=== PATIENT | female | born 1940 | race Asian ===

== ENCOUNTER 2022-09-22 17:22 | Inpatient (IN) | payer OTHER ==
[~2022-09-22] VITALS: Ht 152.4 cm; Wt 43.5 kg
[2022-09-22 17:34] VITALS: BP 132/76
[2022-09-22] MEDS ORDERED: NACL 0.9% 1,000 ML IV ONE (18:20)
--- NOTE | 2022-09-22 18:30 | NUR ---
ASSESMENT PER FLOWSHEET. COMFORT MEASURES AND SUPPORTIVE CARE INITIATED. IV ESTABLISHED,. LAB DRAWN. PUR WICK PLACED. MONITOR PLACED. PREP FOR ERMD EVAL. DAUGHTER AT BS. STATES MOTHER SPEAKS ONLY MANDARIN.
[2022-09-22 18:36] LABS: BASOPHILS % (AUTO) 0.4 % (0.0-2.0); EOSINOPHILS # (AUTO) 0.1 K/uL (0-0.4); EOSINOPHILS % (AUTO) 0.5 % (0.0-4.0); HEMATOCRIT 35.9 % (36-48); HEMOGLOBIN 12.1 g/dL (12.0-16.0); LYMPHOCYTES # (AUTO) 1.7 K/uL (2.5-16.5); LYMPHOCYTES % (AUTO) 15.6 % (20.5-51.1); MEAN CORPUSCULAR HEMOGLOBIN 30 pg (27-31); MEAN CORPUSCULAR HGB CONC 34 g/dL (33-37); MEAN CORPUSCULAR VOLUME 89.2 fL (80-94); MONOCYTES # (AUTO) 1.1 K/uL (0.8-1.0); MONOCYTES % (AUTO) 9.5 % (1.7-9.3); NEUTROPHILS # (AUTO) 8.3 K/uL (1.8-7.7); PLATELET COUNT (AUTO) 163 K/uL (140-450); RED BLOOD CELL COUNT(AUTO) 4.03 MIL/uL (4.20-5.40); RED CELL DISTRIBUTION WIDTH 12.9 % (11.6-13.7); WHITE BLOOD COUNT (AUTO) 11.2 K/uL (4.8-10.8)
--- NOTE | 2022-09-22 19:34 | NUR ---
PT RETURNED FROM CT. PT REMAINS STABLE. CONTINUED CARE ENDORSED TO EMILY RONDON.
[2022-09-22 19:39] LABS: ALBUMIN 3.6 g/dL (3.4-5.0); ANION GAP 10.7 (8-16); ASPARTATE AMINOTRANSFERASE 28 U/L (15-37); CHLORIDE 101 mmol/L (98-107); CREATININE 1.4 mg/dL (0.6-1.3); FREE T4 (FREE THYROXINE) 1.57 ng/dL (0.76-1.46); GLUCOSE 119 mg/dL (74-106); SODIUM SERUM 141 mmol/L (136-145); THYROID STIMULATING HORMONE 0.45 uIU/mL (0.34-3.74); TOTAL BILIRUBIN 0.9 mg/dL (0.0-1.0); UREA NITROGEN, BLOOD 45 mg/dL (7-18)
[2022-09-22 19:43] LABS: POTASSIUM 2.7 mmol/L (3.5-5.1)
[2022-09-22 19:46] LABS: ACETAMINOPHEN < 0.5 ug/ml (10-30); SALICYLATE < 2.8 mg/dL (2.8-20.0)
[2022-09-22] MEDS ORDERED: POTASSIUM CHLORIDE 20% 40 MEQ/15 ML UDC PO ONE (20:05)
--- NOTE | 2022-09-22 21:15 | NUR ---
PT RESTING IN BED DAUGHTER AT BEDSIDE. DENIES ANY PAIN. PENDING DISPO. PT IS NON BELARUSIAN SPEAKING. 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 PUREWIX IN PLACE. BED AT LOWEST POSITION SIDE RAILS UP X2
[2022-09-22] MEDS: NACL 0.9% 1,000 ML IV SCH (23:25)
--- NOTE | 2022-09-23 00:14 | NUR ---
COVID SWAB AND URINE COLLECTED AND SENT TO LAB
[2022-09-23 00:24] LABS: BILIRUBIN,URINE NEGATIVE (NEGATIVE); BLOOD, URINE 3+ (NEGATIVE); COLOR,URINE YELLOW (YELLOW); LEUKOCYTE ESTERASE ,URINE NEGATIVE (NEGATIVE); NITRITE, URINE NEGATIVE (NEGATIVE); UGLUCOSE NEGATIVE (NEGATIVE)
[2022-09-23 00:35] LABS: APPEARANCE,URINE SLIGHTLY HAZY (CLEAR)
[2022-09-23 00:36] LABS: RBC,URINE >100 /HPF (0-5); WBC,URINE 0-5 /HPF (0-5)
[2022-09-23] MEDS ORDERED: HYDR12.51 PO (00:47)
[2022-09-23] MEDS ORDERED: CALC200V3 NS (00:47)
[2022-09-23] MEDS ORDERED: LOVA10TA2 PO (00:47)
[2022-09-23] MEDS ORDERED: CALC-575 PO (00:48)
[2022-09-23] MEDS ORDERED: ASCO-786 PO (00:48)
[2022-09-23] MEDS ORDERED: VIT1TAB10 PO (00:50)
--- NOTE | 2022-09-23 01:04 | NUR ---
MED RECONCILE AND BELONGINGS LIST COMPLETED
--- NOTE | 2022-09-23 01:42 | NUR ---
PENDING BED ASSIG TO BE GIVEN FOR TELE. PT IS SLEEPING RESP EVEN AND UNLABORED. HOB ELEVATED. ON BEDSIDE INSPECTOR GOVERNMENT PROPERTY. BED AT LOWEST LEVEL SIDE RAILS UP X2
--- NOTE | 2022-09-23 06:28 | NUR ---
PT RESTING IN BED WITH HOB ELEVATED. 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 RESP EVEN AND UNLABORED. PENDING BED ASSIG
--- NOTE | 2022-09-23 07:38 | NUR ---
PT SLEEPING, NO AC DISTRESS, EASILY AROUSABLE TO TOUCH, SKIN W/D, SB ON CM, HR 45, NS RUNNING WELL RW, O2 SAT 98% RA, NO FACIAL GRIMACING OR GRUNTING, SR UP TIMES 2. WILL BE ADMITTED
[2022-09-23 08:00] VITALS: BP 151/59
--- NOTE | 2022-09-23 08:03 | NUR ---
PT TO TELEBED 121a, REPORT TO ARNULFO, NO EVENTS AT TRANSFER TIME
[2022-09-23] MEDS: NACL 0.9% 1,000 ML IV SCH ×2 (08:05→18:25)
[2022-09-23 12:00] VITALS: BP 129/65
[2022-09-23] MEDS ORDERED: METO50TE2 PO (12:07)
[2022-09-23] MEDS ORDERED: CHOL50005 PO (12:10)
[2022-09-23] MEDS ORDERED: OSC500 PO (12:12)
[2022-09-23] MEDS ORDERED: ASCO500T95 PO (12:17)
[2022-09-23] MEDS ORDERED: TERI250S2 SUBQ (12:19)
--- NOTE | 2022-09-23 14:18 | NUR ---
DAUGHTER OF PATIENT ASKING IF PATIENT WILL BE DISCHARGING FROM HOSPITAL SOON. ALSO SAYS PATIENT REQUEST FOR MEDICATION TO ASSIST WITH CONSTIPATION.
[2022-09-23 16:00] VITALS: BP 134/66
[2022-09-23 20:00] VITALS: BP 186/93
--- NOTE | 2022-09-23 20:00 | NUR ---
NURSE REPORT REPORT OBTAINED FROM [facility] NURSE ARREDONDO AT 1915 AND THIS NURSE ASSUMED CARE OF PATIENT. ALL QUESTIONS ANSWERED. ARIS PINA RN
[2022-09-23] MEDS ORDERED: CALCITONIN (SALMON) 200 IU/ACTUATION SPR 3.7ML BTL NS SCH (20:35)
[2022-09-23] MEDS ORDERED: CALCIUM CARB 600 MG TAB PO SCH (21:00)
--- NOTE | 2022-09-23 21:00 | NUR ---
NURSE NOTES K IS LOW AT 2.[address] GARCIA WAS SENT MESSAGE OF THIS AND THAT PATIENT HAS A LOT OF HOME MEDS. SHE STATED TO ORDER ALL HOME MEDS. Addendum: 09/23/22 at 2221 by Agency 03 RN RN PATIENT HAD A ELEVATED BP 186/93, SINCE SHE IS C/O BEING CONSTIPATED. RECHECKED BP AND DOWN TO 144/75 WHEN BACK INTO BED. GIVEN MEDS ORDERED AND HYDRALAZINE 12.5 MG GIVEN PO AND IV POTASSIUM STARTED AT 50 ML/HR. BUT HURTING SO NS INFUSING AT 100 ML/HR AND KCL AT 25 ML/HR. DIAPER CHANGED AND PATIENT DIDN'T WANT TO USE PURE WICK
[2022-09-23] MEDS: ASCORBIC ACID 500 MG TAB PO SCH (21:19)
[2022-09-23] MEDS: CALCIUM CARBONATE 500 MG TAB PO SCH (21:19)
[2022-09-23] MEDS: hydroCHLOROthiazide 25 MG TAB PO SCH (21:20)
[2022-09-23] MEDS: KCL 20 MEQ IN 100 mL PREMIX 100 ML IV SCH ×2 (21:21)
[2022-09-23] MEDS ORDERED: LORazepam 2 MG/ML VIAL IVP PRN (22:10)
[2022-09-23] MEDS ORDERED: DOCUSATE SODIUM 100 MG GELCAP PO PRN (22:10)
[2022-09-23] MEDS ORDERED: ONDANSETRON 4 MG/2 ML VIAL IVP PRN (22:10)
[2022-09-23] MEDS ORDERED: MORPHINE SULFATE 2 MG/ML SYR IVP PRN (22:10)
[2022-09-23] MEDS ORDERED: POTASSIUM CHLORIDE 10 MEQ TABER PO PRN (22:10)
[2022-09-23] MEDS ORDERED: ZOLPIDEM 10 MG TAB PO PRN (22:10)
[2022-09-23] MEDS ORDERED: ACETAMINOPHEN 325 MG TAB PO PRN (22:10)
[2022-09-24] VITALS: BP 167/68
--- NOTE | 2022-09-24 00:02 | NUR ---
NURSE NOTES VSS. AFEB. NO C/O PAIN OR DISCOMFORT. TELE WITH SB 57
[2022-09-24 04:00] VITALS: BP 174/103
[2022-09-24] MEDS ORDERED: POLYETHYLENE GLYCOL 17 GM/PKT PO PRN (04:20)
[2022-09-24] MEDS: NACL 0.9% 1,000 ML IV SCH ×3 (04:25→22:00)
[2022-09-24] MEDS: hydrALAZINE 20 MG/ML VIAL IVP PRN ×2 (04:26→12:41)
--- NOTE | 2022-09-24 04:30 | NUR ---
MD COMMUNICATION DR GARCIA WAS NOTIFIED OF BP ELEVATED 174/103, ORDERED IVP HYDRALAZINE.
[2022-09-24 05:51] LABS: BASOPHILS % (AUTO) 0.2 % (0.0-2.0); EOSINOPHILS # (AUTO) 0.2 K/uL (0-0.4); HEMATOCRIT 32.3 % (36-48); HEMOGLOBIN 11.1 g/dL (12.0-16.0); LYMPHOCYTES # (AUTO) 1.9 K/uL (2.5-16.5); LYMPHOCYTES % (AUTO) 18.8 % (20.5-51.1); MEAN CORPUSCULAR HEMOGLOBIN 31 pg (27-31); MEAN CORPUSCULAR HGB CONC 34 g/dL (33-37); MEAN CORPUSCULAR VOLUME 89.2 fL (80-94); MONOCYTES # (AUTO) 0.8 K/uL (0.8-1.0); MONOCYTES % (AUTO) 7.8 % (1.7-9.3); NEUTROPHILS # (AUTO) 7.1 K/uL (1.8-7.7); NEUTROPHILS % (AUTO) 71.2 % (42.2-75.2); PLATELET COUNT (AUTO) 137 K/uL (140-450); RED BLOOD CELL COUNT(AUTO) 3.62 MIL/uL (4.20-5.40); RED CELL DISTRIBUTION WIDTH 12.8 % (11.6-13.7)
[2022-09-24 06:07] LABS: ANION GAP 8.8 (8-16); CARBON DIOXIDE 29.4 mmol/L (21-32); CHLORIDE 109 mmol/L (98-107); CREATININE 0.9 mg/dL (0.6-1.3); GLUCOSE 131 mg/dL (74-106); POTASSIUM 3.2 mmol/L (3.5-5.1); SODIUM SERUM 144 mmol/L (136-145); UREA NITROGEN, BLOOD 28 mg/dL (7-18)
--- NOTE | 2022-09-24 07:19 | NUR ---
NURSE REPORT REPORT GIVEN TO [facility] NURSE ARNULFO TO ASSUME CARE OF PATIENT. ALL QUESTIONS ANSWERED. ARIS PINA RN
[2022-09-24 07:42] VITALS: BP 143/71
[2022-09-24] MEDS ORDERED: TERIPARATIDE 20 MCG SQ SCH (09:00)
[2022-09-24] MEDS ORDERED: VITAMIN D 400 IU TAB PO SCH (09:00)
[2022-09-24] MEDS ORDERED: VITAMIN B COMPLEX PO SCH (09:00)
[2022-09-24] MEDS ORDERED: LOVASTATIN 10 MG PO SCH (09:00)
--- NOTE | 2022-09-24 09:07 | NUR ---
PATIENT HAS BEEN SCREENED AND CATEGORIZED HIGH NUTRITION RISK. PATIENT WILL BE SEEN WITHIN 1-2 DAYS OF ADMISSION. 09/22/22-09/24/[address] REFERRAL RECEIVED FOR LOW POTASSIUM
[2022-09-24] MEDS: MAG SULF 2000 MG/WATER PREMIX 50 ML IV PRN (09:23)
[2022-09-24] MEDS: METOPROLOL SUCCINATE 50 MG TABER PO SCH (09:23)
[2022-09-24] MEDS: hydroCHLOROthiazide 25 MG TAB PO SCH (09:24)
[2022-09-24] MEDS: ASCORBIC ACID 500 MG TAB PO SCH ×2 (09:24→21:25)
[2022-09-24] MEDS: CALCIUM CARBONATE 500 MG TAB PO SCH ×2 (09:24→21:25)
[2022-09-24] MEDS: VITAMIN B COMPLEX W/C 1 TAB PO SCH (09:29)
[2022-09-24] MEDS: ATORVASTATIN 20 MG TAB PO SCH (09:36)
[2022-09-24 12:00] VITALS: BP 185/88
[2022-09-24 16:00] VITALS: BP 134/54
--- NOTE | 2022-09-24 19:32 | NUR ---
NO REPORT YET FROM AM SHIFT
--- NOTE | 2022-09-24 19:35 | NUR ---
09/24/22 RD INITIAL ASSESSMENT COMPLETED. PLEASE REFER TO NUTRITION ASSESSMENT UNDER CARE ACTIVITY FOR ESTIMATED NUTRITIONAL NEEDS. 1. CONTINUE CARDIAC DIET TOLERATED 2. PROVIDED HANDOUT ON POTASSIUM-CONTAINING FOODS AT PTS BEDSIDE. 3. MONITOR PO INTAKE 4. RD TO FOLLOW-UP 2-3 DAYS, HIGH RISK WENDY SHI RD
[2022-09-24 20:00] VITALS: BP 153/81
--- NOTE | 2022-09-24 22:00 | NUR ---
PT PT TO USE THE BEDSIDE COMMODE , VOIDED FREELY A . AMOUNT 600CC CLEAR U.O , WILL CONT . TO MONITOR
[2022-09-25] VITALS: BP 144/80
--- NOTE | 2022-09-25 | NUR ---
ROUNDS NO S/SX OF ACUTE DISTRESS NOTED WILL CONT. TO MONITOR , CQALL LIGHT WITHIN REACH
--- NOTE | 2022-09-25 04:00 | NUR ---
ROUNDS , NO S/SX OF ACUTE DISTRESS NOTED AT THIS TIME , CALL LIGHT WITHIN REACH .
[2022-09-25 06:00] VITALS: BP 135/70
--- NOTE | 2022-09-25 06:00 | NUR ---
SLEEPING , ON TELE MONITOR . CALL LIGHT WITHIN REACH .
[2022-09-25 06:12] LABS: BASOPHILS % (AUTO) 0.4 % (0.0-2.0); EOSINOPHILS # (AUTO) 0.3 K/uL (0-0.4); EOSINOPHILS % (AUTO) 2.8 % (0.0-4.0); HEMATOCRIT 30.5 % (36-48); HEMOGLOBIN 10.3 g/dL (12.0-16.0); LYMPHOCYTES # (AUTO) 2.5 K/uL (2.5-16.5); LYMPHOCYTES % (AUTO) 27.4 % (20.5-51.1); MEAN CORPUSCULAR HEMOGLOBIN 30 pg (27-31); MEAN CORPUSCULAR HGB CONC 34 g/dL (33-37); MEAN CORPUSCULAR VOLUME 89.8 fL (80-94); MONOCYTES # (AUTO) 0.8 K/uL (0.8-1.0); MONOCYTES % (AUTO) 8.8 % (1.7-9.3); NEUTROPHILS # (AUTO) 5.6 K/uL (1.8-7.7); NEUTROPHILS % (AUTO) 60.6 % (42.2-75.2); PLATELET COUNT (AUTO) 144 K/uL (140-450); RED BLOOD CELL COUNT(AUTO) 3.39 MIL/uL (4.20-5.40); RED CELL DISTRIBUTION WIDTH 13.1 % (11.6-13.7); WHITE BLOOD COUNT (AUTO) 9.2 K/uL (4.8-10.8)
[2022-09-25 06:13] LABS: ANION GAP 9.9 (8-16); CARBON DIOXIDE 26.8 mmol/L (21-32); CHLORIDE 110 mmol/L (98-107); CREATININE 0.9 mg/dL (0.6-1.3); GLUCOSE 108 mg/dL (74-106); POTASSIUM 3.7 mmol/L (3.5-5.1); SODIUM SERUM 143 mmol/L (136-145); UREA NITROGEN, BLOOD 21 mg/dL (7-18)
--- NOTE | 2022-09-25 07:38 | NUR ---
ENDORSED TO AM SHIFT FOR CONT. OF CARE , ENDORSED TO NELA RODGERS TO REMIND THE MD ABOUT RESUSCITATION CODE ORDER . NELA MANCIA VERBALIZED UNDERSTANDING .
[2022-09-25 08:00] VITALS: BP 159/66
[2022-09-25] MEDS: CALCIUM CARBONATE 500 MG TAB PO SCH (09:48)
[2022-09-25] MEDS: ASCORBIC ACID 500 MG TAB PO SCH (09:51)
[2022-09-25] MEDS: METOPROLOL SUCCINATE 50 MG TABER PO SCH (09:51)
[2022-09-25] MEDS: hydroCHLOROthiazide 25 MG TAB PO SCH (09:52)
[2022-09-25] MEDS: VITAMIN B COMPLEX W/C 1 TAB PO SCH (09:56)
[2022-09-25] MEDS: ATORVASTATIN 20 MG TAB PO SCH (09:56)
[2022-09-25] MEDS: MAG SULF 2000 MG/WATER PREMIX 50 ML IV PRN (10:05)
[2022-09-25] MEDS: NACL 0.9% 1,000 ML IV SCH (10:07)
[2022-09-25 11:48] LABS: ALBUMIN 2.8 g/dL (3.4-5.0); ANION GAP 9.4 (8-16); ASPARTATE AMINOTRANSFERASE 16 U/L (15-37); CARBON DIOXIDE 30.3 mmol/L (21-32); CHLORIDE 107 mmol/L (98-107); GLUCOSE 104 mg/dL (74-106); POTASSIUM 3.7 mmol/L (3.5-5.1); SODIUM SERUM 143 mmol/L (136-145); TOTAL BILIRUBIN 0.5 mg/dL (0.0-1.0); UREA NITROGEN, BLOOD 19 mg/dL (7-18)
[2022-09-25 12:00] VITALS: BP 150/66
[2022-09-25 13:33] VITALS: BP 150/66
--- NOTE | 2022-09-25 15:51 | NUR ---
DC PLANNING ASSESSMENT COMPLETE PLEASE REFER TO ASSESSMENT FOR ADDITIONAL DETAILS PT CURRENTLY HAS PT EVAL PENDING, HOWEVER ISACC WILSON REPORTS TENTATIVE DC PLAN IS FOR PT TO RETURN HOME WITH FAMILY PROVIDING TRANSPORTATION, WHEN STABLE. DC PLAN TENTATIVE ON PT RECOMENDATIONS AND MAY CHANGE. DAUGHTER REQUESTING UPDATE WITH PT RECOMMENDATIONS. Addendum: 09/25/22 at 1555 by Ramonita CLEMENS Amended: Links added.
[2022-09-25 16:00] VITALS: BP 141/62
[2022-09-25] MEDS ORDERED: ATOR20TA40 PO (16:18)
--- NOTE | 2022-09-25 18:20 | NUR ---
DISCHARGE PATIENT IN STABLE CONDITION TO HOME PER PCP ORDER, DISCHARGE INSTRUCTION GIVE, DISCHARGE CONSENT SIGN, IV ACCESS, TEL. MONITOR, & WRIST BAND REMOVED. NURSE INSTRUCT PATIENT, WHILE DAUGHTER PRESENT, TO CONTACT HER PCP OUT HOSPITAL SOON POSSIBLE.
[2022-09-26] MEDS ORDERED: CHOLECALCIFEROL 1,000 IU TAB PO SCH (09:00)
== END 2022-09-25 18:15 | disposition home or self-care (01) | DRG 683 ==
LOC: MED 17:22 → MTU 22:08
PROVIDERS: ADMIT Family Medicine; ATTEND Family Medicine
DX: N17.9 Acute kidney failure, unspecified (principal); E44.1 Mild protein-calorie malnutrition; Z68.1 Body mass index [BMI] 19.9 or less, adult; E86.0 Dehydration; I10 Essential (primary) hypertension; E83.52 Hypercalcemia; E87.6 Hypokalemia; Z20.822 Contact with and (suspected) exposure to COVID-19; D72.829 Elevated white blood cell count, unspecified; Z79.899 Other long term (current) drug therapy
CPT/HCPCS: 36415; 70450; 71045; 80048; 80053; 81001; 82550; 82553; 83036; 83735; 84439; 84443; 84484; 85025; 87081; 93005; 96360; 99291; A4649; G0480; J0360; J1644; J3475; J3480; Q0092

== ENCOUNTER 2023-01-12 15:19 | Emergency (ER) | payer OTHER ==
[~2023-01-12] VITALS: Ht 162.6 cm; Wt 47.6 kg
[~2023-01-12 15:19] MED LIST: ASCO500T95 PO; ATOR20TA40 PO; CALC200V3 NS; CHOL50005 PO; HYDR12.51 PO; LOVA10TA2 PO; METO50TE2 PO; OSC500 PO; TERI250S2 SUBQ; VIT1TAB10 PO
[2023-01-12 15:38] VITALS: BP 115/64; PULSE 72; RESP 20; TEMP 98; O2SAT 99
--- NOTE | 2023-01-12 16:07 | NUR ---
MICHAEL Lin evaluating patient at bedside.
[2023-01-12] MEDS ORDERED: KETOROLAC 30 MG/ML VIAL IM ONE (16:15)
[2023-01-12] MEDS ORDERED: GABAPENTIN 300 MG CAP PO ONE (16:15)
[2023-01-12 17:07] VITALS: O2SAT 96
[2023-01-12] MEDS ORDERED: IBUP-2213 PO (17:46)
[2023-01-12] MEDS ORDERED: GABA300C PO (17:46)
[2023-01-12] MEDS ORDERED: CEPH-588 PO (17:46)
[2023-01-12 17:55] LABS: APPEARANCE,URINE CLEAR (CLEAR); BILIRUBIN,URINE NEGATIVE (NEGATIVE); BLOOD, URINE 1+ (NEGATIVE); COLOR,URINE YELLOW (YELLOW); LEUKOCYTE ESTERASE ,URINE TRACE (NEGATIVE); NITRITE, URINE NEGATIVE (NEGATIVE); UGLUCOSE NEGATIVE (NEGATIVE)
--- NOTE | 2023-01-12 17:57 | NUR ---
Patient discharged with v/s stable. Written and verbal after care instructions given. Patient alert, oriented and verbalized understanding of instructions. Ambulatory with steady gait. All questions addressed prior to discharge. ID band removed. Patient advised to follow up with PMD. Rx of CEPHALEXIN, IBUPROFEN, AND gABAPENTIN given. Opportunity to ask questions provided and answered. LAST SET OF VITALS TAKEN AND DOCUMENTED. NO IV TO DISCONTINUE
[2023-01-12 18:00] VITALS: BP 120/96; PULSE 67; RESP 17; O2SAT 96
--- NOTE | 2023-01-12 18:47 | NUR ---
The patient's care was reviewed and supervised by FREYA NGUYỄN RN.
== END 2023-01-12 17:57 | disposition home or self-care (01) ==
LOC: MED 15:19
DX: S39.012A Strain of muscle, fascia and tendon of lower back, initial encounter (principal); N39.0 Urinary tract infection, site not specified; I10 Essential (primary) hypertension; Z79.899 Other long term (current) drug therapy; X58.XXXA Exposure to other specified factors, initial encounter; Y93.89 Activity, other specified; Y92.89 Other specified places as the place of occurrence of the external cause; Y99.8 Other external cause status
CPT/HCPCS: 81001; 87086; 96372; 99283; J1885